=== PATIENT | female | born 1960 | race Caucasian/White ===

== ENCOUNTER 2018-03-31 12:09 | Day surgery (SDC) | payer MEDICAID ==
[~2018-03-31] VITALS: Ht 160 cm; Wt 77.3 kg
[~2018-03-31 12:09] MED LIST: PHE12.5T PO
[2018-03-31 12:20] VITALS: BP 133/77
[2018-03-31] MEDS ORDERED: BUPR300T54 PO (12:26)
[2018-03-31] MEDS ORDERED: ARIP10TA15 PO (12:27)
[2018-03-31] MEDS ORDERED: LOSA50TA3 PO (12:27)
[2018-03-31] MEDS ORDERED: MEDR2.5T7 PO (12:28)
[2018-03-31] MEDS ORDERED: MELO7.5T12 PO (12:28)
[2018-03-31] MEDS ORDERED: PRAZ2CAP2 PO (12:29)
[2018-03-31] MEDS ORDERED: CHOL400T32 PO (12:29)
[2018-03-31] MEDS ORDERED: DOCU-28 PO (12:30)
[2018-03-31] MEDS ORDERED: MELA10TA2 PO (12:30)
[2018-03-31] MEDS ORDERED: DICL100G15 TOP (12:32)
[2018-03-31] MEDS ORDERED: fentaNYL/PF 50MCG/1 ML 2ML syringe ONE (12:45)
[2018-03-31] MEDS ORDERED: MIDAZolam 5mg/5ml vial ONE (12:46)
[2018-03-31] MEDS ORDERED: LIDOcaine Viscous 15ml cup ONE (12:46)
[2018-03-31 13:38] VITALS: BP 127/67
[2018-03-31 13:48] VITALS: BP 122/77
[2018-03-31 13:58] VITALS: BP 134/71
[2018-03-31 14:08] VITALS: BP 131/57
== END 2018-03-31 14:10 | disposition home or self-care (01) ==
LOC: GI LAB 12:09
PROVIDERS: ATTEND Internal Medicine Gastroenterology
DX: K21.0 Gastro-esophageal reflux disease with esophagitis (principal); K31.7 Polyp of stomach and duodenum; K29.30 Chronic superficial gastritis without bleeding; K22.8 Other specified diseases of esophagus; I10 Essential (primary) hypertension; F17.210 Nicotine dependence, cigarettes, uncomplicated; Z86.19 Personal history of other infectious and parasitic diseases; Z79.1 Long term (current) use of non-steroidal anti-inflammatories (NSAID); Z79.899 Other long term (current) drug therapy
CPT/HCPCS: 43239; J2250; J3010; J7030; 99152; A4620

== ENCOUNTER 2025-02-03 08:42 | Outpatient (CLI) | payer MEDICAID ==
[~2025-02-03] VITALS: Ht 159.4 cm; Wt 81.6 kg
[~2025-02-03 08:42] MED LIST changes: +ARIP10TA15 PO; +BUPR-557 PO; +CHOL400T32 PO; +DICL100G15 TOP; +DOCU-28 PO; +LOSA-416 PO; +MEDR2.5T7 PO; +MELA10TA2 PO; +MELO7.5T12 PO; -PHE12.5T PO; +PRAZ2CAP2 PO
[2025-02-03] MEDS: albuterol 2.5 MG/3 ML nebule NEB ONE (09:23)
[2025-02-03 09:24] VITALS: PULSE 78; RESP 16; O2SAT 97
[2025-02-03 09:36] VITALS: PULSE 76; RESP 16
--- NOTE | 2025-02-03 15:33 | PROCEDURE NOTE - Respiratory ---
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 The spirometry study was performed both before and after inhaled bronchodilator. Spirometry measurements: There is reduction in both the forced vital capacity and the FEV1. The FEV1 ratio is also significantly reduced. All of the measured flow rates show reduction. After inhaled bronchodilator was administered, some of the flow rates show slight improvement. Conclusion: This study is abnormal. There is evidence for obstructive ventilatory defect in the moderate to severe category. This suggest a diagnosis of smoking-related COPD. It is strongly recommended that this patient completely abstain from smoking cigarettes. This patient should continue regular daily use of bronchodilator medicine. We have no previous studies for comparison. ADRIANA BARNETT MD Feb 03, 2025 15:33
== END 2025-02-03 23:59 | disposition home or self-care (01) ==
LOC: RT 08:42
PROVIDERS: ATTEND Nurse Practitioner Family
DX: R06.02 Shortness of breath (principal)
CPT/HCPCS: 94060; 94760; J7030